=== PATIENT | female | born 1990 | race African-American/Black ===

== ENCOUNTER 2020-08-27 00:02 | Observation (INO) ==
[2020-08-27] MEDS ORDERED: HYDROmorphone 2 MG/1 ML VIAL IV STA (04:32)
[2020-08-27] MEDS ORDERED: SODIUM CHLORIDE 0.9% 500 ML IV STA (04:32)
[2020-08-27] MEDS ORDERED: ALUM/MAG/SIMETH/LIDO VISC 1:1 30 ML BOTTLE PO STA (04:32)
[2020-08-27] MEDS ORDERED: PANTOPRAZOLE 40 MG VIAL IV STA (04:32)
[2020-08-27 05:02] LABS: Albumin 3.4 G/DL (3.4-5.0); Bilirubin,Total 0.4 MG/DL (0.2-1.0); Calcium 8.4 MG/DL (8.5-10.1); Osmolality,Calculated 273.7 MOS/KG (273-304); Potassium 3.8 MMOL/L (3.5-5.1); Total Protein 7.9 G/DL (6.4-8.2)
[2020-08-27 06:15] LABS: Basophils # 0.1 10*3/uL (0.0-0.2); Basophils % 0.6 % (0.0-0.8); Bilirubin,Urine Negative (Negative); Blood, Urine Negative (Negative); Eosinophils # 0.3 10*3/uL (0.0-0.87); Eosinophils % 2.2 % (0.00-10.9); Glucose,Urine (UA) Negative (Negative); Hematocrit 39.7 VOL% (35.7-47.0); Hemoglobin 13.2 GM/DL (12.0-16.0); Immature Granulocytes % 0.3 %; Immature Granulocytes Absolute 0.04 #; Ketones,Urine Negative (Negative); Lymphocytes # 3.2 10*3/uL (1.4-4.0); Lymphocytes % 26.6 % (21.3-54.2); Mean Corpuscular HGB Conc 33.2 GM/DL (32-36); Mean Corpuscular Volume 91.5 FL (87-102); Mean Platelet Volume 9.6 FL (9.6-12.0); Monocytes % 7.1 % (1.7-12.7); Mucus,Urine Few /LPF (Occasional); Neutrophils % 63.2 % (38.7-73.9); Nitrite,Urine Negative (Negative); Platelet Count 363 T/CUMM (130-400); Protein,Urine Negative; RBC,Urine 4 /HPF (0-4); Red Blood Count 4.34 MC/CUMM (3.8-5.5); Red Cell Distribution Width 14.2 % (9.3-17.3); Squamous Epithelial Cell,Urine Occasional /HPF (0-10); Urine Appearance CLOUDY (Clear); Urine Color Yellow (Yellow); WBC,Urine 5 /HPF (0-6); White Blood Count 12.2 T/CUMM (4-12)
[2020-08-27] MEDS ORDERED: DEXTROSE 50% 25 GM/50 ML VIAL IV PRN (09:26)
[2020-08-27] MEDS ORDERED: GLUCAGON 1 MG VIAL IM PRN (09:26)
[2020-08-27] MEDS ORDERED: ONDANSETRON 4 MG/2 ML VIAL IV PRN (09:26)
[2020-08-27 14:19] LABS: Hematocrit 39.5 VOL% (35.7-47.0)
[2020-08-27] MEDS ORDERED: hydrALAZINE 20 MG/1 ML VIAL IV PRN (15:28)
[2020-08-27] MEDS ORDERED: ACETAMINOPHEN 500 MG TABLET PO PRN (15:34)
[2020-08-27] MEDS ORDERED: ACETAMINOPHEN 650 MG SUPP RECTAL PRN (15:34)
[2020-08-27 15:39] LABS: Hematocrit 38.8 VOL% (35.7-47.0); Hemoglobin 12.6 GM/DL (12.0-16.0)
[2020-08-27] MEDS: POLYETHYLENE GLYCOL POWDER 17 GM PACK PO SCH ×2 (18:13→21:14)
[2020-08-27] MEDS ORDERED: POLYETHYLENE GLYCOL POWDER 17 GM PACK PO SCH (21:00)
[2020-08-28 01:16] LABS: Hematocrit 37.9 VOL% (35.7-47.0); Hemoglobin 12.5 GM/DL (12.0-16.0)
[2020-08-28 01:28] LABS: Calcium 8.6 MG/DL (8.5-10.1); Potassium 3.3 MMOL/L (3.5-5.1)
[2020-08-28 04:21] LABS: Basophils # 0.1 10*3/uL (0.0-0.2); Basophils % 0.6 % (0.0-0.8); Eosinophils # 0.3 10*3/uL (0.0-0.87); Eosinophils % 3.1 % (0.00-10.9); Hematocrit 38.3 VOL% (35.7-47.0); Hemoglobin 12.9 GM/DL (12.0-16.0); Immature Granulocytes % 0.3 %; Immature Granulocytes Absolute 0.03 #; Lymphocytes # 3.3 10*3/uL (1.4-4.0); Lymphocytes % 37.9 % (21.3-54.2); Mean Corpuscular HGB Conc 33.7 GM/DL (32-36); Mean Corpuscular Volume 89.5 FL (87-102); Mean Platelet Volume 9.1 FL (9.6-12.0); Neutrophils % 50.1 % (38.7-73.9); Platelet Count 309 T/CUMM (130-400); Red Blood Count 4.28 MC/CUMM (3.8-5.5); Red Cell Distribution Width 14.3 % (9.3-17.3); White Blood Count 8.7 T/CUMM (4-12)
[2020-08-28 07:15] LABS: Hematocrit 38.3 VOL% (35.7-47.0); Hemoglobin 13.1 GM/DL (12.0-16.0)
[2020-08-28] MEDS ORDERED: POTASSIUM CHLORIDE 20 MEQ TABLET PO ONE (07:30)
[2020-08-28] MEDS ORDERED: PANTOPRAZOLE 40 MG VIAL IV SCH (09:00)
[2020-08-28] MEDS: POLYETHYLENE GLYCOL POWDER 17 GM PACK PO SCH (09:13)
[2020-08-28 11:28] VITALS: BP 139/84
== END 2020-08-28 13:37 | disposition home or self-care (01) ==
LOC: N.EDINP 00:02 → N.ED 00:02 → N.EDINP 15:05 → N.2E 15:12
PROVIDERS: ADMIT Internal Medicine Geriatric Medicine; ATTEND Internal Medicine Geriatric Medicine